=== PATIENT | female | born 1990 | race Caucasian/White ===

== ENCOUNTER 2017-10-03 01:19 | Emergency (ER) | payer OTHER ==
[~2017-10-03] VITALS: Ht 154.9 cm; Wt 51.7 kg
[2017-10-03 01:30] VITALS: Ht 154.9 cm; Wt 51.7 kg
[2017-10-03 03:34] LABS: UA SPECIFIC GRAVITY >=1.030 (1.005-1.035); microscopic required? YES; urine erythrocyte 3+ (NEGATIVE)
[2017-10-03 03:41] VITALS: BP 106/66
== END 2017-10-03 03:41 | disposition home or self-care (01) ==
LOC: ED 01:19
PROVIDERS: Emergency Medicine
DX: N39.0 Urinary tract infection, site not specified (principal); E03.9 Hypothyroidism, unspecified

== ENCOUNTER 2017-10-29 02:20 | Emergency (ER) | payer OTHER ==
[2017-10-29 06:01] VITALS: BP 106/57
== END 2017-10-29 06:01 | disposition left against medical advice (07) ==
LOC: ED 02:20
DX: J02.9 Acute pharyngitis, unspecified (principal); T36.95XA Adverse effect of unspecified systemic antibiotic, initial encounter
CPT/HCPCS: J0171; J1200; J2930